=== PATIENT | male | born 1960 | race Caucasian/White ===

== ENCOUNTER → 2017-02-03 | Outpatient (CLI) | payer OTHER ==
[2017-02-03 15:22] LABS: CHLORIDE,CL 103 mmol/L (98-110); SODIUM,NA 137 mmol/L (136-146)
== END ==
LOC: MW.CHFP 13:57
PROVIDERS: ATTEND Family Medicine
DX: M25.50 Pain in unspecified joint (principal); R20.2 Paresthesia of skin
CPT/HCPCS: 36415; 80053; 82607; 84443; 84550; 85027; 85652; 86430; 86431; 86618; 86812

== ENCOUNTER 2020-09-10 22:51 | Emergency (ER) | payer OTHER ==
[2020-09-10] MEDS ORDERED: Aspirin 81 MG Tab.Chew ONE (23:11)
[2020-09-10] MEDS ORDERED: Aspirin 81 MG Tab.EC PO ONE (23:11)
[2020-09-10] MEDS ORDERED: Aspirin 81 MG Tab.Chew PO ONE (23:13)
[2020-09-10] MEDS ORDERED: Ondansetron 4 MG/2 ML SDV IVPUSH ONE (23:14)
[2020-09-10] MEDS ORDERED: Ondansetron 4 MG/2 ML SDV ONE (23:15)
[2020-09-10] MEDS ORDERED: Meclizine 25 MG Tab ONE (23:25)
[2020-09-10] MEDS ORDERED: Meclizine 25 MG Tab PO STA (23:31)
--- NOTE | 2020-09-10 23:44 | CR ---
HISTORY: Dizziness COMPARISON: 09/21/2019 FINDINGS: A portable erect AP view of the chest was obtained at 23 31 hours. The lungs remain clear. No focal or diffuse infiltrates are present. The heart remains normal in size. The mediastinum is normal in appearance. The superior end of a left humeral intra medullary lucas and proximal interlocking screw are again barely included on today`s study. The rest of the osseous structures are normal in appearance for the patient`s age. IMPRESSION: No active disease seen in the chest. Dictated by Pedro Gonzales MD @ Sep 10 2020 11:41PM Signed by Dr. Pedro Gonzales @ Sep 10 2020 11:42PM
[2020-09-10 23:50] LABS: BLOOD UREA NITROGEN,BUN 25 mg/dL (7.0-18.0); CARBON DIOXIDE,CO2 22.9 mmol/L (21.0-32.0); CHLORIDE,CL 100 mmol/L (98-107); GLUCOSE RANDOM 143 mg/dL (74-106); POTASSIUM,K 3.1 mmol/L (3.5-5.1); SODIUM,NA 135 mmol/L (136-148)
[2020-09-11] MEDS ORDERED: Potassium Chloride 10% 20 MEQ/15 ML Soln 15 ML UD Cup PO ONE (00:13)
[2020-09-11] MEDS ORDERED: Sodium Chloride 0.9% 1,000 ML IV STA (00:27)
[2020-09-11] MEDS ORDERED: Potassium Chloride 10% 20 MEQ/15 ML Soln 30 ML UD Cup PO ONE (00:37)
[2020-09-11] MEDS ORDERED: Potassium Chloride 10% 20 MEQ/15 ML Soln 30 ML UD Cup ONE (00:39)
[2020-09-11] MEDS ORDERED: Ondansetron 4 MG/2 ML SDV IVPUSH ONE (02:00)
--- NOTE | 2020-09-11 03:10 | EDM.PDOC ---
ED HPI GENERAL MEDICAL PROBLEM - General Chief Complaint: General Stated Complaint: DIZZNESS Time Seen by Provider: 09/10/20 23:05 - History of Present Illness INITIAL COMMENTS - FREE TEXT/NARRATIVE: CHIEF COMPLAINT(S): Dizziness HISTORY OF PRESENT ILLNESS: This is a 60-year-old man with a reported past medical history of hypertension who comes to the emergency department with a chief complaint of dizziness. The patient states that when he woke up he started to feel dizzy. He states that he has severe dizziness when he moves his head or his body. He states that it feels like the room is spinning. He states that he did feel clammy and had an episode of vomiting. He denies any headache, double vision, diplopia, numbness, tingling, or weakness. He states that because of the dizziness he feels like he is having trouble walking. He denies any chest pain or shortness of breath. He denies any abdominal pain, dysuria, or hematuria. He states that he has never had anything like this before. He states that he lives with his girlfriend his Brought him into the emergency department. The patient denies any prior cardiac issues. He denies any prior history of stroke. REVIEW OF SYSTEMS: Constitutional: Denies fever, chills. Eyes: Denies eye pain Ears, Nose, Mouth, & Throat: Denies earache Cardiovascular: Denies chest pain Respiratory: Denies shortness of breath Gastrointestinal: Positive for nausea and vomiting. Denies diarrhea, hematochezia, hematemesis, bilious emesis, melena, abdominal pain Genitourinary: Denies hematuria dysuria Skin:Denies a rash Neurological: Positive for dizziness. Denies blurred vision, diplopia, numbness, tingling, weakness Psychiatric: Denies depression PAST MEDICAL HISTORY: As per history of present illness and as reviewed below otherwise noncontributory. SURGICAL HISTORY: As per history of present illness and as reviewed below otherwise noncontributory. SOCIAL HISTORY: As per history of present illness and as reviewed below otherwise noncontributory. FAMILY HISTORY: As per history of present illness and as reviewed below otherwise noncontributory. EXAMINATION OF ORGAN SYSTEMS/BODY AREAS: Constitutional: Blood pressure is 192/101, heart rate 81, respiratory rate 18 with an oxygen saturation of 97% on room air. Temperature 35.8 General: Middle-aged gentleman who appears in no acute distress and laying on his left side. Psychiatric: Appropriate mood and affect. Eyes: No scleral icterus or conjunctival erythema pupils were equal round and reactive to light. Extraocular movements were intact. There was no vertical nystagmus however there was left beating nystagmus which was fatigable.On head impulse test there is some lag with corrective saccade to the left. Test of skew is negative. ENMT: Moist mucous membranes. No pharyngeal erythema tongue protrudes midline. Cardiovascular: Regular, rate, and rhythm. No gallops, murmurs, or rubs. Bilateral upper extremity pulses symmetric and intact. No peripheral edema. No JVD. Respiratory: Lungs clear to auscultation bilaterally. No wheezes, rales, or rhonchi. Gastrointestinal: Soft, non-tender, non-distended. Normoactive bowel sounds Genitourinary: No suprapubic tenderness Musculoskeletal: Normal range of motion. Skin: No lesions or abrasions. Neurological: AOx4. Facies were symmetrical, tongue protrudes midline, good shoulder shrug, sensation in the face is intact and equal. Stregth 5/5 in bilateral upper and lower extremity. Sensation is intact bilaterally in upper and lower extremity. Gait appears normal. Finger to nose, heel to delgadillo, rapid alternating movements intact. MEDICAL DECISION MAKING AND COURSE IN THE ED WITH INTERPRETATION/REVIEW OF DIAGNOSTIC STUDIES: This is a 60-year-old man and with a past medical history of hypertension who comes to the emergency department with what appears to be benign peripheral vertigo with nausea and vomiting. However given his age will obtain a cardiac work-up. Initial EKG had a a lot of artifact therefore a repe at EKG was obtained and did not reveal any acute signs of ischemia. We will provide the patient with Zofran and meclizine. We will also provide the patient with 1 L of normal saline bolus. Twelve-lead EKG interpreted by myself. Normal sinus rhythm at a rate of 77 beats per minute. Normal axis. UT interval is 195 ms. QRS duration is [address] segments are not elevated however there is some mild depression in 2 3 and aVF. No Q waves present. Hypertrophy not noted. No prior EKGs. Interpretation: Normal sinus rhythm with less than 1 box with depressions in 2 3 and aVF without any reciprocal changes Laboratory: CBC is unremarkable. Coags are within normal limits. CMP reveals hyponatremia at 135, hypokalemia at 3.1, hyperglycemia at 143 and a mildly elevated AST at 40. Troponin x1 is negative. The radiological images were viewed by myself along with reading the report from the radiologist. Chest x-ray does not reveal any acute cardiopulmonary process. On reevaluation, the patient stated that his dizziness had slightly improved but still felt nauseous. At this time his vitals had improved including a decrease in his blood pressure with continued good oxygenation. At this time I did provide the patient with an additional 4 mg of IV Zofran. His neurological examination remains the same. After period of observation we did instruct the patient on how to do the David maneuver and performed in the emergency department which did exacerbate his symptoms mildly. Laboratory: Repeat troponin is negative. Twelve-lead EKG interpreted by myself. Normal sinus rhythm at a rate of 68 beats per minute. Normal axis. UT interval is 184 ms. QRS duration is [address] segments are normal without elevations or depressions. No Q waves present. Hypertrophy not noted interpretation: Normal sinus rhythm After repeat troponin is did reevaluate the patient. He stated that he had some improvement in his dizziness if he stays still. I discussed that at this time I do believe he is experiencing benign positional vertigo. I discussed with him that I would be providing him with meclizine to be used as needed for dizziness and nausea up to 4 times a day and instructed him to do the David maneuver at home 3 times a day. I discussed that if he had any new or worsening symptoms such as continued vomiting or nausea, new onset weakness, or inability to walk he should return to the emergency department. He was amenable discharge at this time and had no further questions. With the patient's permission I did discuss this with his who was amenable to this plan. DISPOSITION: The patient was discharged home in stable condition. The patient will follow up with primary care physician within 2 to 3 days CONDITION: Fair PROCEDURES: None FINAL IMPRESSION(S)/DIAGNOSES: 1. Acute benign positional vertigo Solomon Kwon M.D. - Related Data Allergies Allergy/AdvReac Type Severity Reaction Status Date / Time No Known Allergies Allergy Verified 09/10/20 22:58 Home Meds: Home Meds Lisinopril/Hydrochlorothiazide [Lisinopril-Hctz 20-12.5 mg Tab] 2 tab PO DAILY 05/23/16 [History] Meclizine [Antivert] 25 mg PO Q6H PRN #56 tab 09/11/20 [Rx] Past Medical History HEENT History: Reports: None Cardiovascular History: Reports: Hypertension Respiratory History: Reports: None Gastrointestinal History: Reports: GERD Genitourinary History: Reports: None Other Genitourinary History: hernia surgery 05/26/2016 Musculoskeletal History: Reports: Fracture Other Musculoskeletal History: hx of fx left arm, bilateral clavicles, ankle Neurological History: Reports: None Psychiatric History: Reports: None Endocrine/Metabolic History: Reports: None Insulin Pump Model and Toaster Element Repairer: None Hematologic History: Reports: None Immunologic History: Reports: None Oncologic (Cancer) History: Reports: None Dermatologic History: Reports: None - Infectious Disease History Infectious Disease History: Reports: Chicken Pox - Past Surgical History Head Surgeries/Procedures: Reports: None HEENT Surgical History: Reports: Naso-Sinus Surgery Cardiovascular Surgical History: Reports: None Respiratory Surgical History: Reports: None GI Surgical History: Reports: None Male Surgical History: Reports: None Endocrine Surgical History: Reports: None Neurological Surgical History: Reports: None Musculoskeletal Surgical History: Reports: ORIF Other Musculoskeletal Surgeries/Procedures:: left arm Oncologic Surgical History: Reports: None Dermatological Surgical History: Reports: None Social & Family History - Family History Cardiac: Reports: Aneurysm Other Cardiac Family History: mother - Tobacco Use Tobacco Use Status *Q: Never Tobacco User - Caffeine Use Caffeine Use: Reports: Soda - Recreational Drug Use Recreational Drug Use: No ED ROS GENERAL - Review of Systems Review Of Systems: See Below ED EXAM, GENERAL - Physical Exam Exam: See Below Course - Vital Signs Last Recorded V/S: Last Vital Signs Temp 35.9 C L 09/11/20 03:37 Pulse 73 09/11/20 03:37 Resp 20 09/11/20 03:37 BP 151/82 H 09/11/20 03:37 Pulse Ox 97 09/11/20 03:37 - Orders/Labs/Meds Labs: Laboratory Tests 09/10/20 09/10/20 09/10/20 Range/Units 22:56 22:56 22:56 WBC 10.04 (4.0-11.0) K/uL RBC 5.03 (4.50-5.90) M/uL Hgb 15.6 (13.0-17.0) g/dL Hct 44.8 (38.0-50.0) % MCV 89.1 (80.0-98.0) fL MCH 31.0 (27.0-32.0) pg MCHC 34.8 (31.0-37.0) g/dL RDW Std Deviation 43.2 (28.0-62.0) fl RDW Coeff of Penelope 13 (11.0-15.0) % Plt Count 258 (150-400) K/uL MPV 10.50 (7.40-12.00) fL Neut % (Auto) 55.3 (48.0-80.0) % Lymph % (Auto) 32.2 (16.0-40.0) % Cache % (Auto) 10.7 (0.0-15.0) % Eos % (Auto) 1.6 (0.0-7.0) % Baso % (Auto) 0.2 (0.0-1.5) % Neut # (Auto) 5.6 (1.4-5.7) K/uL Lymph # (Auto) 3.2 H (0.6-2.4) K/uL Cache # (Auto) 1.1 H (0.0-0.8) K/uL Eos # (Auto) 0.2 (0.0-0.7) K/uL Baso # (Auto) 0.0 (0.0-0.1) K/uL Nucleated RBC % 0.0 /100WBC Nucleated RBCs # 0 K/uL INR 0.96 Sodium 135 L (136-148) mmol/L Potassium 3.1 L (3.5-5.1) mmol/L Chloride 100 (98-107) mmol/L Carbon Dioxide 22.9 (21.0-32.0) mmol/L BUN 25 H (7.0-18.0) mg/dL Creatinine 1.3 (0.8-1.3) mg/dL Est Cr Clr Drug Dosing 71.32 mL/min Estimated GFR (MDRD) 56.1 ml/min Glucose 143 H (74-106) mg/dL Calcium 8.9 (8.5-10.1) mg/dL Magnesium 2.1 (1.8-2.4) mg/dL Total Bilirubin 0.4 (0.2-1.0) mg/dL AST 40 H (15-37) IU/L ALT 58 (14-63) IU/L Alkaline Phosphatase 110 (46-116) U/L Troponin I < 0.050 (0.000-0.056) ng/mL Total Protein 7.2 (6.4-8.2) g/dL Albumin 3.9 (3.4-5.0) g/dL Globulin 3.3 (2.6-4.0) g/dL Albumin/Globulin Ratio 1.2 (0.9-1.6) 09/11/20 Range/Units 02:28 WBC (4.0-11.0) K/uL RBC (4.50-5.90) M/uL Hgb (13.0-17.0) g/dL Hct (38.0-50.0) % MCV (80.0-98.0) fL MCH (27.0-32.0) pg MCHC (31.0-37.0) g/dL RDW Std Deviation (28.0-62.0) fl RDW Coeff of Penelope (11.0-15.0) % Plt Count (150-400) K/uL MPV (7.40-12.00) fL Neut % (Auto) (48.0-80.0) % Lymph % (Auto) (16.0-40.0) % Cache % (Auto) (0.0-15.0) % Eos % (Auto) (0.0-7.0) % Baso % (Auto) (0.0-1.5) % Neut # (Auto) (1.4-5.7) K/uL Lymph # (Auto) (0.6-2.4) K/uL Cache # (Auto) (0.0-0.8) K/uL Eos # (Auto) (0.0-0.7) K/uL Baso # (Auto) (0.0-0.1) K/uL Nucleated RBC % /100WBC Nucleated RBCs # K/uL INR Sodium (136-148) mmol/L Potassium (3.5-5.1) mmol/L Chloride (98-107) mmol/L Carbon Dioxide (21.0-32.0) mmol/L BUN (7.0-18.0) mg/dL Creatinine (0.8-1.3) mg/dL Est Cr Clr Drug Dosing mL/min Estimated GFR (MDRD) ml/min Glucose (74-106) mg/dL Calcium (8.5-10.1) mg/dL Magnesium (1.8-2.4) mg/dL Total Bilirubin (0.2-1.0) mg/dL AST (15-37) IU/L ALT (14-63) IU/L Alkaline Phosphatase (46-116) U/L Troponin I < 0.050 (0.000-0.056) ng/mL Total Protein (6.4-8.2) g/dL Albumin (3.4-5.0) g/dL Globulin (2.6-4.0) g/dL Albumin/Globulin Ratio (0.9-1.6) Meds: Medications Discontinued Medications Generic Name Dose Route Start Last Admin Trade Name Freq PRN Reason Stop Dose Admin Aspirin 162 mg 09/10/20 23:11 09/10/20 23:14 Halfprin PO 09/10/20 23:12 Not Given ONETIME ONE Aspirin Confirm 09/10/20 23:11 09/10/20 23:38 Aspirin Administered 09/10/20 23:12 Not Given Dose 162 mg .ROUTE .STK-MED ONE Aspirin 162 mg 09/10/20 23:13 09/10/20 23:00 Aspirin PO 09/10/20 23:14 162 mg ONETIME ONE Administration Sodium Chloride 1,000 mls @ 999 mls/hr 09/11/20 00:27 09/11/20 00:39 Normal Saline IV 09/11/20 01:27 999 mls/hr NOW STA Administration Meclizine HCl Confirm 09/10/20 23:25 09/10/20 23:31 Antivert Administered 09/10/20 23:26 Not Given Dose 25 mg .ROUTE .STK-MED ONE Meclizine HCl 25 mg 09/10/20 23:31 09/10/20 23:38 Antivert PO 09/10/20 23:32 25 mg DAILY STA Administration Ondansetron HCl 4 mg 09/10/20 23:14 09/10/20 23:38 Zofran IVPUSH 12/28/20 23:15 4 mg ONETIME ONE Administration Ondansetron HCl Confirm 09/10/20 23:15 09/10/20 23:31 Zofran Administered 09/10/20 23:16 Not Given Dose 4 mg .ROUTE .STK-MED ONE Ondansetron HCl 4 mg 09/11/20 02:00 09/11/20 02:07 Zofran IVPUSH 09/11/20 02:01 4 mg ONETIME ONE Administration Potassium Chloride 40 meq 09/11/20 00:13 09/11/20 00:40 Potassium Chloride Solution PO 09/11/20 00:14 Not Given ONETIME ONE Potassium Chloride 40 meq 09/11/20 00:37 09/11/20 00:39 Potassium Chloride PO 09/11/20 00:38 40 meq ONETIME ONE Administration Potassium Chloride Confirm 09/11/20 00:39 09/11/20 00:41 Potassium Chloride Administered 09/11/20 00:40 Not Given Dose 40 meq .ROUTE .STK-MED ONE Departure - Departure Time of Disposition: 03:30 Disposition: Home, Self-Care 01 Clinical Impression: Benign paroxysmal positional vertigo Qualifiers: Laterality: left Qualified Code(s): H81.12 - Benign paroxysmal vertigo, left ear - Discharge Information *PRESCRIPTION DRUG MONITORING PROGRAM REVIEWED*: No *COPY OF PRESCRIPTION DRUG MONITORING REPORT IN PATIENT BOLIVAR: No Prescriptions: Meclizine [Antivert] 25 mg PO Q6H PRN #56 tab PRN Reason: Dizziness Instructions: Vertigo, [id number], How to Perform the David Maneuver, Benign Positional Vertigo Referrals: PCP,None [Primary Care Provider] - Forms: ED Department Discharge Additional Instructions: You were evaluated today on an emergent basis. At this time you have been diagnosed with what is called benign positional vertigo. This type of vertigo may take some time to resolve and I recommend doing the David maneuver which is in your discharge paperwork 3 times a day. Please use meclizine 25 mg as needed for dizziness for up to 4 times per day. This medication may make you sleepy and drowsy so please do not take while operating machinery or driving. If you have any new or worsening symptoms such as inability to walk, weakness on your left or right arms or legs, drooping of the face, or development of headache please return to the emergency department. Please follow-up with your primary care physician within 2 to 3 days. [facility] [address] [place] [address] [facility] [address] [place] [address] The patient is informed of any results of their evaluation and diagnostic workup and all questions are answered. They are given discharge instructions and return precautions. The patient is stable for discharge. The patient states they understand and agree with the plan and that they will return if their symptoms get worse or if they have any new concerns. The following information is given to patients seen in the emergency department who are being discharged to home. This information is to outline your options for follow-up care. We provide all patients seen in our emergency department with a follow-up referral. The need for follow-up, as well as the timing and circumstances, are variable depending upon the specifics of your emergency department visit. If you don't have a primary care physician on staff, we will provide you with a referral. We always advise you to contact your personal physician following an emergency department visit to inform them of the circumstance of the visit and for follow-up with them and/or the need for any referrals to a consulting specialist. The emergency department will also refer you to a specialist when appropriate. This referral assures that you have the opportunity for follow-up care with a specialist. All of these measure are taken in an effort to provide you with optimal care, which includes your follow-up. Under all circumstances we always encourage you to contact your private physician who remains a resource for coordinating your care. When calling for follow-up care, please make the office aware that this follow-up is from your recent emergency room visit. If for any reason you are refused follow-up, please contact the [facility] Emergency Department at and asked to speak to the emergency department charge nurse. Sepsis Event Note (ED) - Evaluation Sepsis Screening Result: No Definite Risk - Focused Exam Vital Signs: Vital Signs Temp Pulse Resp BP Pulse Ox 09/11/20 03:37 35.9 C L 73 20 151/82 H 97 09/11/20 01:13 78 18 133/70 95 09/10/20 23:40 70 18 161/93 H 97 09/10/20 22:55 35.8 C L 81 18 192/101 H 97
[2020-09-11 03:40] VITALS: BP 151/82; PULSE 73
== END 2020-09-11 03:35 | disposition home or self-care (01) ==
LOC: MW.ED 22:51
DX: H81.12 Benign paroxysmal vertigo, left ear (principal); I10 Essential (primary) hypertension; Z79.899 Other long term (current) drug therapy
CPT/HCPCS: 36415; 71045; 80053; 83735; 84484; 85025; 85610; 93005; 96374; 96376; 99284; A9270; J2405; J7030

== ENCOUNTER 2021-11-15 07:41 | Day surgery (SDC) | payer OTHER ==
[~2021-11-15 07:41] MED LIST: Lactated Ringers 1,000 ML IV SCH; Midazolam 1 MG/ML 2 ML SDV ONE; Propofol 200 MG/20 ML SDV ONE; fentaNYL 100 MCG/2 ML SDV ONE
[2021-11-15] MEDS ORDERED: Glycopyrrolate 0.2 MG/ML SDV ONE (09:31)
[2021-11-15] MEDS ORDERED: Lidocaine 2% 5 ML SDV ONE (09:31)
[2021-11-15] MEDS ORDERED: Propofol 200 MG/20 ML SDV ONE (09:32)
[2021-11-15] MEDS ORDERED: Lactated Ringers 1,000 ML IV SCH (09:45)
[2021-11-15 10:17] VITALS: BP 176/99; PULSE 77
== END 2021-11-15 10:30 | disposition home or self-care (01) ==
LOC: MW.SDS 07:41
PROVIDERS: ATTEND Surgery
DX: K62.1 Rectal polyp (principal); K29.50 Unspecified chronic gastritis without bleeding; K20.90 Esophagitis, unspecified without bleeding; G47.33 Obstructive sleep apnea (adult) (pediatric); I10 Essential (primary) hypertension; F41.9 Anxiety disorder, unspecified; E78.5 Hyperlipidemia, unspecified; Z79.899 Other long term (current) drug therapy; Z98.890 Other specified postprocedural states; Z87.891 Personal history of nicotine dependence
CPT/HCPCS: 43239; 45380; J2250; J2704; J3010; J3490; J7120; 00813; 88305